=== PATIENT | male | born 1965 | race Two or more races ===

== ENCOUNTER 2019-02-26 14:04 | Day surgery (SDC) | payer OTHER ==
[~2019-02-26] VITALS: Ht 177.8 cm; Wt 74.3 kg
[2019-02-26 14:58] VITALS: Ht 177.8 cm; Wt 74.3 kg
[2019-02-26] MEDS ORDERED: FLOMAX (15:02)
[2019-02-26 15:16] VITALS: BP 119/77; PULSE 85; RESP 10
[2019-02-26] MEDS ORDERED: FENTAnyl 50 MCG/ML VIAL ONE (16:15)
[2019-02-26] MEDS ORDERED: MIDAZOLAM 1 MG/ML 2 ML INJ ONE ×2 (16:16)
== END 2019-02-26 16:26 | disposition home or self-care (01) ==
LOC: GIL 14:04
PROVIDERS: ATTEND Internal Medicine
DX: D50.0 Iron deficiency anemia secondary to blood loss (chronic) (principal); K20.9 Esophagitis, unspecified
CPT/HCPCS: 43239; 45378; 88305; 88312; J2250; J3010